=== PATIENT | female | born 1995 | race Caucasian/White ===

== ENCOUNTER 2020-11-17 11:30 | Inpatient (IN) | payer BC, OTHER ==
[2020-11-17] MEDS ORDERED: Lidocaine 1% (PF) 30 ML VIAL SC PRN (11:58)
[2020-11-17] MEDS ORDERED: Butorphanol Tartrate 1 MG/ML VIAL SLOW IVP PRN (11:58)
[2020-11-17] MEDS ORDERED: Carboprost 250 MCG/ML AMP IM PRN (11:58)
[2020-11-17] MEDS ORDERED: Diphenoxylate HCl/Atropine Tablet PO PRN ×2 (11:58)
[2020-11-17] MEDS ORDERED: HYDROcodone/Acetaminophen 5/325 mg Tablet PO PRN ×4 (11:58→20:38)
[2020-11-17] MEDS ORDERED: Zolpidem Tartrate 5 MG TAB PO PRN ×2 (11:58→20:38)
[2020-11-17] MEDS ORDERED: Ondansetron PF 4 MG/2 ML Vial IVP PRN ×3 (11:58→20:38)
[2020-11-17] MEDS ORDERED: Ibuprofen 800 MG TAB PO PRN (11:58)
[2020-11-17] MEDS ORDERED: Methylergonovine 0.2 MG/ML VIAL IM PRN ×2 (11:58→20:38)
[2020-11-17] MEDS ORDERED: Acetaminophen 500 MG TAB PO PRN (11:58)
[2020-11-17] MEDS ORDERED: hydrALAZINE 20 MG/ML VIAL SLOW IVP PRN ×2 (11:58→20:38)
[2020-11-17] MEDS ORDERED: Promethazine HCl 25 MG/ML VIAL IM PRN ×3 (11:58→20:38)
[2020-11-17] MEDS ORDERED: Misoprostol 200 MCG TAB PR PRN (11:58)
[2020-11-17] MEDS ORDERED: NS w/ Oxytocin 30 units 500 ML IVPB SCH (12:00)
[2020-11-17] MEDS ORDERED: NS w/ Oxytocin 30 units 500 ML IV SCH ×3 (12:00→20:38)
[2020-11-17 12:27] VITALS: BMI 36.2
[2020-11-17 12:30] LABS: Hemoglobin 8.4 g/dL (12.0-15.5); Mean Corpuscular HGB CONC 29.6 g/dL (32.0-36.0); Mean Corpuscular Hemoglobin 20.1 pg (27.0-33.0); Mean Corpuscular Volume 67.9 fl (81.6-98.3); Mean Platelet Volume 10.6 fl (7.4-10.4); Platelet Count 221 10x3/uL (150-450); RBC Distribution Width 16.6 % (11.5-14.5); Red Blood Cell (RBC) Count 4.18 10x6/uL (3.90-5.03); White Blood Cell (WBC) Count 21.4 10x3/uL (3.5-10.5)
[2020-11-17] MEDS ORDERED: Fentanyl 2 mcg/Bup 0.1% Cadd 100 ML ONE (12:37)
[2020-11-17 13:08] LABS: Hep B Surf Ag Non-Reactive S/CO (NonReactive)
[2020-11-17 13:09] LABS: Syphilis Antibody Nonreactive (Nonreactive); Syphilis Antibody Index 0.02 S/CO (<1.00 Non-Reactive)
[2020-11-17] MEDS ORDERED: NS w/ Oxytocin 30 units 500 ML ONE (13:34)
[2020-11-17] MEDS ORDERED: Misoprostol 200 MCG TAB ONE (13:34)
[2020-11-17] MEDS ORDERED: Hydrocerin (Eucerin) Cream 120 gm Jar TOP PRN (14:33)
[2020-11-17] MEDS ORDERED: Lactated Ringer's 500 ML IV PRN (14:33)
[2020-11-17] MEDS ORDERED: Acetaminophen 325 MG TAB PO PRN (14:33)
[2020-11-17] MEDS ORDERED: diphenhydrAMINE 50 MG/ML VIAL IVP PRN (14:33)
[2020-11-17] MEDS ORDERED: Naloxone HCl 0.4 mg/ml Vial IVP PRN ×2 (14:33)
[2020-11-17] MEDS ORDERED: ePHEDrine Sulfate 50 MG/10 ML VIAL SLOW IVP PRN (14:33)
[2020-11-17] MEDS ORDERED: Fentanyl 2 mcg/Bupivacaine 0.1% Cassette 100 ML EPIDURAL SCH (14:45)
[2020-11-17] MEDS ORDERED: Communication Order-Pharmacy FS SCH (14:45)
[2020-11-17] MEDS: Lactated Ringer's 1,000 ML IV SCH (19:14)
[2020-11-17] MEDS ORDERED: Misoprostol 200 MCG TAB VAG PRN (20:38)
[2020-11-17] MEDS ORDERED: Bisacodyl 10 MG SUPP PR PRN (20:38)
[2020-11-17] MEDS ORDERED: Milk Of Magnesia 30 ML UDCUP PO PRN (20:38)
[2020-11-17] MEDS ORDERED: Measles/Mumps/Rubella 10 MCG/0.5 ML VIAL SC ONE (20:38)
[2020-11-17] MEDS ORDERED: Benzocaine-Menthol 82.5 ML CAN TOP PRN (20:38)
[2020-11-17] MEDS ORDERED: Preparation H Ointment 28 GM TUBE PR PRN (20:38)
[2020-11-17] MEDS ORDERED: Varicella virus, LIVE 0.5 ML VIAL SC ONE (20:38)
[2020-11-17] MEDS ORDERED: Boostrix 0.5 ML (Tdap) VIAL IM ONE (20:38)
[2020-11-17] MEDS ORDERED: Lanolin Ointment 7 GM TUBE TOP PRN (20:38)
[2020-11-17] MEDS ORDERED: diphenhydrAMINE 25 MG CAP PO PRN (20:38)
[2020-11-17 22:03] LABS: Hemoglobin 7.2 g/dL (12.0-15.5); Mean Corpuscular HGB CONC 30.5 g/dL (32.0-36.0); Mean Corpuscular Hemoglobin 20.5 pg (27.0-33.0); Mean Platelet Volume 9.8 fl (7.4-10.4); Platelet Count 193 10x3/uL (150-450); RBC Distribution Width 16.5 % (11.5-14.5); Red Blood Cell (RBC) Count 3.52 10x6/uL (3.90-5.03); White Blood Cell (WBC) Count 28.3 10x3/uL (3.5-10.5)
[2020-11-17] MEDS: Ibuprofen 800 MG TAB PO SCH (22:20)
[2020-11-17 22:27] LABS: MDiff Complete? YES
[2020-11-17 22:29] LABS: Band 4 % (5-11); Lymphocytes 12 % (21-51); Monocytes 3 % (0-10); Myelocyte 2 % (0-0); Neutrophil 79 % (42-75)
[2020-11-17 22:30] LABS: Microcytosis MODERATE=15-30 cells (100X) (0-5/hpf)
[2020-11-17] MEDS: Docusate Calcium (SURFAK) 240 MG CAP PO SCH (22:43)
[2020-11-18] MEDS: CEFAZOLIN 2 GM in Premix Bag 1 BAG IVPB SCH ×3 (00:44→17:45)
[2020-11-18 02:33] LABS: Bilirubin Neg (Negative); Blood, Urine 250 (Negative); Clarity Bloody (Clear); Glucose, Urine (Dipstick) Normal (Negative); Ketone, Urine Negative (Negative); Leukocyte 500 (Negative); Nitrite Negative (Negative); Protein, Urine (Dipstick) 100 mg/dl (Neg-Trace); Urobilinogen Normal mg/dL (Less than 2)
[2020-11-18 02:34] LABS: RBC/HPF Greater than 50 HPF (0-3); Urine Culture Reflex No No
[2020-11-18 02:35] LABS: Bacteria/HPF Rare-Few HPF (None Seen)
[2020-11-18 06:17] LABS: Mean Corpuscular HGB CONC 29.9 g/dL (32.0-36.0); Mean Corpuscular Hemoglobin 20.2 pg (27.0-33.0); Mean Corpuscular Volume 67.7 fl (81.6-98.3); Platelet Count 169 10x3/uL (150-450); RBC Distribution Width 16.6 % (11.5-14.5); Red Blood Cell (RBC) Count 2.97 10x6/uL (3.90-5.03); White Blood Cell (WBC) Count 21.9 10x3/uL (3.5-10.5)
[2020-11-18] MEDS: Ibuprofen 800 MG TAB PO SCH ×3 (06:40→21:30)
[2020-11-18] MEDS: Docusate Calcium (SURFAK) 240 MG CAP PO SCH ×2 (08:40→21:29)
[2020-11-18] MEDS: Ferrous Sulfate 325 MG TAB PO SCH ×2 (08:40→18:02)
[2020-11-18] MEDS: Lactated Ringer's 1,000 ML IV SCH (09:22)
[2020-11-18] MEDS ORDERED: Acetaminophen 500 MG TAB PO SCH (19:00)
[2020-11-18] MEDS ORDERED: diphenhydrAMINE 12.5 MG/5 ML UDCUP PO SCH (19:00)
[2020-11-19] MEDS: Ibuprofen 800 MG TAB PO SCH (05:24)
[2020-11-19 06:49] LABS: #Basophils 0.1 10x3/uL (0.0-0.2); #Eosinphils 0.1 10x3/uL (0.0-0.5); #Monocytes 0.8 10x3/uL (0.0-1.1); #Neutrophils 11.9 10x3/uL (1.5-8.4); %Basophils 0.4 % (0.0-2.0); %Eosinophils 0.8 % (0.0-6.0); %Lymphocytes 21.4 % (18.0-47.0); %Monocytes 4.6 % (0.0-10.0); %Neutrophils 69.8 % (40.0-75.0); Hemoglobin 7.6 g/dL (12.0-15.5); Mean Corpuscular Hemoglobin 22.3 pg (27.0-33.0); Mean Corpuscular Volume 74.2 fl (81.6-98.3); Mean Platelet Volume 10.4 fl (7.4-10.4); Platelet Count 204 10x3/uL (150-450); RBC Distribution Width 19.1 % (11.5-14.5); Red Blood Cell (RBC) Count 3.41 10x6/uL (3.90-5.03); White Blood Cell (WBC) Count 17.1 10x3/uL (3.5-10.5)
[2020-11-19 07:55] VITALS: BP 100/54; TEMP 97.9
[2020-11-19] MEDS: Docusate Calcium (SURFAK) 240 MG CAP PO SCH (09:35)
[2020-11-19] MEDS: Ferrous Sulfate 325 MG TAB PO SCH (09:35)
[2020-11-19] MEDS ORDERED: Bupivacaine 0.25% HCL 30 ML VIAL ONE (12:03)
== END 2020-11-19 13:07 | disposition home or self-care (01) | DRG 807 ==
LOC: CSHLD 11:30 → CSHPED 21:08
PROVIDERS: ADMIT Obstetrics & Gynecology; ATTEND Obstetrics & Gynecology
PROC: 10E0XZZ Delivery of Products of Conception, External Approach (ICD-10-PCS; principal; 2020-11-17)
PROC: 0W8NXZZ Division of Female Perineum, External Approach (ICD-10-PCS; 2020-11-17)
PROC: 30233N1 Transfusion of Nonautologous Red Blood Cells into Peripheral Vein, Percutaneous Approach (ICD-10-PCS; 2020-11-18)
DX: O34.211 Maternal care for low transverse scar from previous cesarean delivery (principal); Z37.0 Single live birth; Z3A.38 38 weeks gestation of pregnancy
CPT/HCPCS: 36415; 36430; 51702; 81001; 85025; 85027; 86780; 86850; 86900; 86901; 87340; J0690; J2001; J2210; J2590; P9016; Q0163; S0020; U0002

== ENCOUNTER 2025-03-10 22:36 | Day surgery (SDC) | payer OTHER ==
[2025-03-10 23:14] VITALS: BMI 38.4
[2025-03-10] MEDS: Cyclobenzaprine 10 MG TAB PO SCH (23:48)
[2025-03-10] MEDS: Acetaminophen 500 MG TAB PO SCH (23:49)
[2025-03-11 00:54] LABS: Fetal Membranes Rupture No Membranes Rupture (No Rupture)
== END 2025-03-11 01:46 | disposition home or self-care (01) ==
LOC: CSHLD/OP 22:36
PROVIDERS: ATTEND Obstetrics & Gynecology
DX: O99.891 Other specified diseases and conditions complicating pregnancy (principal); R10.20 Pelvic and perineal pain unspecified side; M54.9 Dorsalgia, unspecified; O34.211 Maternal care for low transverse scar from previous cesarean delivery; Z3A.37 37 weeks gestation of pregnancy; Z67.20 Type B blood, Rh positive; Z79.899 Other long term (current) drug therapy
CPT/HCPCS: 84112; 99285

== ENCOUNTER 2025-03-18 10:21 | Inpatient (IN) | payer MEDICAID, OTHER ==
[2025-03-17 13:24] LABS: Hematocrit 32.5 % (34.9-44.5); Hemoglobin 10.5 g/dL (12.0-15.5); Mean Corpuscular Hemoglobin 25.5 pg (27.0-33.0); Mean Corpuscular Volume 79.1 fL (81.6-98.3); Platelet Count 245 10x3/uL (150-450); Red Blood Cell (RBC) Count 4.11 10x6/uL (3.90-5.03); White Blood Cell (WBC) Count 13.20 10x3/uL (3.5-10.5)
[2025-03-17 13:25] VITALS: BMI 39.1
[2025-03-17 13:54] LABS: Syphilis Antibody Index 0.03 S/CO (<1.00 Non-Reactive)
[2025-03-17 13:57] LABS: HIV (1/2) Antibody/Antigen Non-Reactive (NonReactive); HIV 1/2 INDEX 0.20 S/CO (<1.00); Hep B Surf Ag Non-Reactive S/CO (NonReactive)
[2025-03-18] MEDS ORDERED: hydrALAZINE 20 MG/ML VIAL SLOW IVP PRN (13:09)
[2025-03-18] MEDS ORDERED: Ondansetron PF 4 MG/2 ML Vial IVP PRN (13:09)
[2025-03-18] MEDS ORDERED: Methylergonovine 0.2 MG/ML VIAL IM PRN (13:09)
[2025-03-18] MEDS ORDERED: Oxytocin 30 units/NS 500 ML 500 ML IV SCH ×2 (13:15)
[2025-03-18] MEDS: diphenhydrAMINE 50 MG/ML VIAL IVP PRN (17:27)
[2025-03-18] MEDS: CEFAZOLIN 2 GM VIAL ONE (19:44)
[2025-03-18] MEDS: Azithromycin 500 MG VIAL ONE (19:44)
[2025-03-18] MEDS: Oxytocin 10 UNITS/ML VIAL ONE (19:44)
[2025-03-18] MEDS: diphenhydrAMINE 50 MG/ML VIAL ONE (19:45)
[2025-03-18] MEDS: Ibuprofen 800 MG TAB PO SCH (21:48)
[2025-03-18] MEDS: Ferrous Sulfate 325 MG TAB PO SCH (21:49)
[2025-03-18] MEDS: diphenhydrAMINE 25 MG CAP PO PRN (23:24)
[2025-03-19 03:50] LABS: Hematocrit 29.1 % (34.9-44.5); Hemoglobin 9.0 g/dL (12.0-15.5); Mean Corpuscular Hemoglobin 25.0 pg (27.0-33.0); Mean Corpuscular Volume 80.8 fL (81.6-98.3); Platelet Count 176 10x3/uL (150-450); Red Blood Cell (RBC) Count 3.60 10x6/uL (3.90-5.03); White Blood Cell (WBC) Count 12.60 10x3/uL (3.5-10.5)
[2025-03-19] MEDS: HYDROcodone/Acetaminophen 5/325 mg Tablet PO PRN ×2 (09:16→14:05)
[2025-03-20] MEDS: Simethicone Chewable 80 MG TAB PO PRN (14:40)
[2025-03-21 08:37] VITALS: BP 124/76; TEMP 97.1
[2025-03-21] MEDS: Sertraline 25 MG TAB PO SCH (09:14)
== END 2025-03-21 13:10 | disposition home or self-care (01) | DRG 788 ==
LOC: CSHLD 10:21 → CSHPP 16:00
PROVIDERS: ADMIT Obstetrics & Gynecology; ATTEND Obstetrics & Gynecology
PROC: 10D00Z1 Extraction of Products of Conception, Low, Open Approach (ICD-10-PCS; principal; 2025-03-18)
DX: O13.4 Gestational [pregnancy-induced] hypertension without significant proteinuria, complicating childbirth (principal); O34.211 Maternal care for low transverse scar from previous cesarean delivery; Z3A.38 38 weeks gestation of pregnancy; F41.9 Anxiety disorder, unspecified; O99.344 Other mental disorders complicating childbirth; Z37.0 Single live birth
CPT/HCPCS: 36415; 51702; 85027; 86780; 86850; 86900; 86901; 87340; 87389; J1200; J2274; J2590